=== PATIENT | female | born 1990 | race Caucasian/White ===

== ENCOUNTER → 2018-02-13 | Outpatient (CLI) | payer OTHER ==
[~2018-02-13] MED LIST: Colace100 MG PO; IBUP800 PO; OXYACE5T PO; Verotin-Gr Cap1 EACH PO
[2018-02-13 16:20] LABS: BASOPHILS ABSOLUTE AUTO 0.06 K/mm3 (0.00-0.23); BASOPHILS PERCENT AUTO 1 % (0-2); EOSINOPHILS PERCENT AUTO 2 % (0-6); Hemoglobin 11.5 g/dL (11.5-16.0); IMMATURE GRAN ABSOLUTE AUTO 0.04 K/mm3 (0.00-0.10); IMMATURE GRAN PERCENT AUTO 0 % (0-1); LYMPHOCYTES ABSOLUTE AUTO 2.89 K/mm3 (0.84-5.20); LYMPHOCYTES PERCENT AUTO 24 % (21-46); MONOCYTES ABSOLUTE AUTO 0.63 K/mm3 (0.16-1.47); MONOCYTES PERCENT AUTO 5 % (4-13); Mean Corpuscular HGB 19.2 pg (26.0-34.0); Mean Corpuscular HGB Conc 30.3 g/dL (31.5-36.5); Mean Corpuscular Volume 63 fL (80-100); Mean Platelet Volume 10.7 fL (9.1-12.4); NEUTROPHILS PERCENT AUTO 69 % (41-73); Platelet Count 299 K/mm3 (150-400); RDW Standard Deviation 34.6 fL (35.1-46.3); Red Blood Cell Count 5.99 M/mm3 (3.80-5.20); White Blood Cell Count 12.32 K/mm3 (4.00-11.30)
[2018-02-13 16:33] LABS: Alanine Aminotransfer (ALT/SGP 26 U/L (12-78); Albumin, Blood 4.4 g/dL (3.4-5.0); Alk Phos 126 U/L (50-136); Anion Gap 5 mmol/L (6-16); Aspartate Aminotrans (AST/SGOT 13 U/L (12-37); Bilirubin, Total 0.7 mg/dL (0.1-1.0); Blood Urea Nitrogen 18 mg/dL (8-24); Bun/Creatinine Ratio 19.8 (12.0-20.0); CO2, Blood 29 mmol/L (21-32); Calcium, Blood 9.2 mg/dL (8.5-10.1); Chloride, Blood 105 mmol/L (98-108); Creatinine, Blood 0.91 mg/dL (0.40-1.00); Globulin, Blood 4.2 g/dL (2.2-4.0); Glomerular Filtration Rate >60 (60-); Glucose, Blood 91 mg/dL (70-99); Potassium, Blood 3.8 mmol/L (3.5-5.5); Sodium, Blood 139 mmol/L (136-145); Total Protein, Blood 8.6 g/dL (6.4-8.2)
[2018-02-13 20:41] LABS: Percent Saturation 22.1 % (15.0-50.0)
== END ==
LOC: LAB SHORT 16:06 → LAB 16:06
PROVIDERS: Family Medicine
DX: R05 Cough (principal)
CPT/HCPCS: 80053; 82103; 82728; 83540; 83550; 85025

== ENCOUNTER 2021-04-30 17:56 | Inpatient (IN) | payer OTHER ==
[~2021-04-30] VITALS: Ht 165.1 cm; Wt 77.1 kg
[~2021-04-30 17:56] MED LIST changes: +Robaxin500 MG PO
[2021-04-30 20:17] LABS: Source, Urine Clean Catch
[2021-04-30 20:19] LABS: BASOPHILS ABSOLUTE AUTO 0.05 K/mm3 (0.00-0.23); BASOPHILS PERCENT AUTO 0 % (0-2); EOSINOPHILS ABSOLUTE AUTO 0.01 K/mm3 (0.00-0.68); EOSINOPHILS PERCENT AUTO 0 % (0-6); Hematocrit 35.2 % (33.0-51.0); Hemoglobin 10.8 g/dL (11.5-16.0); IMMATURE GRAN ABSOLUTE AUTO 0.03 K/mm3 (0.00-0.10); IMMATURE GRAN PERCENT AUTO 0 % (0-1); LYMPHOCYTES ABSOLUTE AUTO 1.56 K/mm3 (0.84-5.20); LYMPHOCYTES PERCENT AUTO 12 % (21-46); MONOCYTES ABSOLUTE AUTO 0.44 K/mm3 (0.16-1.47); MONOCYTES PERCENT AUTO 3 % (4-13); Mean Corpuscular HGB 19.4 pg (26.0-34.0); Mean Corpuscular HGB Conc 30.7 g/dL (31.5-36.5); Mean Corpuscular Volume 63 fL (80-100); NEUTROPHILS ABSOLUTE AUTO 11.11 K/mm3 (1.96-9.15); NEUTROPHILS PERCENT AUTO 84 % (41-73); Platelet Count 209 K/mm3 (150-400); RDW Coefficient Variation 15.9 % (11.7-14.2); RDW Standard Deviation 34.4 fL (35.1-46.3); Red Blood Cell Count 5.58 M/mm3 (3.80-5.20)
[2021-04-30 20:20] LABS: Mean Platelet Volume 11.4 fL (9.1-12.4)
[2021-04-30 20:22] LABS: Appearance, Urine Clear (Clear); Bilirubin, Urine Neg (Neg); Blood, Urine Neg (Neg); Color, Urine Amber (P-Yellow); Glucose Qualitative, Urine Neg (Neg); Ketones, Urine 4+ (Neg); Leukocyte Esterase, Urine Neg (Neg); Nitrite, Urine Neg (Neg); Protein, Urine 1+ (Neg); Specific Gravity, Urine 1.025 (1.003-1.022); Urobilinogen, Urine NORM (Normal)
[2021-04-30 20:33] LABS: Alanine Aminotransfer (ALT/SGP 40 U/L (12-78); Albumin, Blood 4.1 g/dL (3.4-5.0); Albumin/Globulin Ratio 1.2 (0.8-1.8); Alk Phos 83 U/L (50-136); Anion Gap 7 mmol/L (6-16); Aspartate Aminotrans (AST/SGOT 14 U/L (12-37); Bilirubin, Total 0.9 mg/dL (0.1-1.0); Blood Urea Nitrogen 17 mg/dL (8-24); Bun/Creatinine Ratio 37.9 (12.0-20.0); CO2, Blood 26 mmol/L (21-32); Calcium, Blood 9.2 mg/dL (8.5-10.1); Chloride, Blood 107 mmol/L (98-108); Creatinine, Blood 0.45 mg/dL (0.40-1.00); Globulin, Blood 3.3 g/dL (2.2-4.0); Glomerular Filtration Rate >60 (60-); Glucose, Blood 106 mg/dL (70-99); Potassium, Blood 3.3 mmol/L (3.5-5.5); Sodium, Blood 140 mmol/L (136-145); Total Protein, Blood 7.4 g/dL (6.4-8.2)
[2021-04-30] MEDS ORDERED: LORA10ER PO (23:25)
--- NOTE | 2021-04-30 23:30 | NUR ---
PT NEW ADMIT FROM ER FOR MARY. PT A/O, VSS. PT REP RUQ ABD PAIN X1 DAY, REP NAUSEA W/EMESIS X1. BT HYPO, ABD SOFT, MILDLY DISTENDED, TENDER TO PALP. PT ORIENTED TO ROOM/CALL LIGHT, PRN PAIN MED ORDERS REV W/PT. PT NPO FOR SUGERY PLANS.
[2021-05-01 00:44] LABS: SARS-Cov-2 (COVID-19) PCR, MMC NEGATIVE (NEGATIVE)
--- NOTE | 2021-05-01 06:41 | NUR ---
PT VSS SINCE ARRIVING TO FLOOR. PAIN AND NAUSEA MGD PER EMAR. PT NPO FOR PLAN FOR SURGERY TODAY; IVF CONT PER ORDERS.
--- NOTE | 2021-05-01 07:26 | NUR ---
PT A/O, STATES PAIN 3/10 AND TOLERABLE AT THIS TIME.
--- NOTE | 2021-05-01 13:06 | NUR ---
PT TO OR AT APROX 1304
[2021-05-01] MEDS ORDERED: Norco 5-325 Ta1 EACH PO (16:52)
--- NOTE | 2021-05-01 17:22 | NUR ---
PT ARRIVED BACK FROM UNIT AT APROX 0484. LAP SITES X'S 3 C/D/I. GIVEN CLEAR LIQUIDS, WILL ADVANCE TOLERATED. REPORTS PAIN "MILD DISCOMFORT" BUT TOLERABLE
--- NOTE | 2021-05-01 18:21 | NUR ---
SHIFT SUMMARY PT POD 0 LAP MARY. LAP SITES X'S 3 C/D/I. PT REPORTS 7\10 PAIN, MEDICATED ONCE WITH 1 NORCO PER EMAR. PT TOLERATING CLEAR LIQUIDS, WILL ADVANCE TOLERATED. PLAN TO DC HOME TOMORROW IF NO COMPLICATIONS.
--- NOTE | 2021-05-02 04:23 | NUR ---
SHIFT SUMMARY: PT POD#1 FOR A LAP MARY. LAP SITES C/D/I. PAIN BEING MANAGED WITH NORCO Q4 PER EMAR. PT REPORTS PASSING A SMALL AMOUNT OF FLATUS THIS MORNING. UP IN ROOM INDEPENDENTLY AND AMBULATING TO BATHROOM. VOIDING WELL. TOLERATING WATER, CRACKERS AND JELLO T/O NIGHT. DENIES N/V. PLAN FOR DISCHARGE TODAY.
--- NOTE | 2021-05-02 07:45 | NUR ---
PT REPORTS PAIN 2/10 THIS AM WITH USE OF ORAL PAIN MGMT. TOLERATING REGUALR DIET WITH NO N/V. DISCHARGED INSTRUCTIONS DISCUSSED, PT VERBALIZED UNDERSTANDING. WILL DC HOME WHEN PT HAS RIDE AVAILABLE.
== END 2021-05-02 10:56 | disposition home or self-care (01) | DRG 419 ==
LOC: ER 17:56 → SURS 17:57
PROVIDERS: Physician Assistant; Surgery; ADMIT Surgery
PROC: BF101ZZ Fluoroscopy of Bile Ducts using Low Osmolar Contrast (ICD-10-PCS; 2021-05-01)
PROC: 0FT44ZZ Resection of Gallbladder, Percutaneous Endoscopic Approach (ICD-10-PCS; principal; 2021-05-01 13:45)
DX: K80.00 Calculus of gallbladder with acute cholecystitis without obstruction (principal); K82.8 Other specified diseases of gallbladder
CPT/HCPCS: 36415; 74300; 76705; 80053; 81025; 83690; 85025; 88304; 96361; 96365; 96375; 96376; 99285-25; A9270; C1729; G0378; J0295; J1100; J1885; J2405; J2704; J3010; J7030; J7120; U0004

== ENCOUNTER → 2021-07-04 | Outpatient (CLI) | payer OTHER ==
[~2021-07-04] MED LIST changes: +LORA10ER PO; +Norco 5-325 Ta1 EACH PO
[2021-07-05 20:13] LABS: CORONAVIRUS (COVID19) CSH-NRL Negative (Negative)
== END | disposition home or self-care (01) ==
LOC: LAB SHORT 08:35 → LAB 08:35
PROVIDERS: Family Medicine
DX: Z20.822 Contact with and (suspected) exposure to COVID-19 (principal)
CPT/HCPCS: U0003